=== PATIENT | male | born 1950 | race Caucasian/White ===

== ENCOUNTER 2021-01-09 06:12 | Day surgery (SDC) | payer MEDICARE ==
[2021-01-08 11:14] LABS: BASOPHILS # (AUTO) 0.1 X10'3 (0-0.2); BASOPHILS % (AUTO) 1.3 % (0-1); EOSINOPHILS # (AUTO) 0.2 X10'3 (0-0.9); EOSINOPHILS % (AUTO) 4.5 % (0-6); HEMATOCRIT 43.8 % (42.0-52.0); HEMOGLOBIN 14.9 g/dl (14.0-17.9); LYMPHOCYTES # (AUTO) 1.6 X10'3 (1.1-4.8); LYMPHOCYTES % (AUTO) 31.7 % (21-51); MEAN CORPUSCULAR HGB CONC 33.9 g/dL (33.0-36.5); MEAN CORPUSCULAR VOLUME 100.3 FL (78-98); MEAN PLATELET VOLUME 9.8 FL (7.4-10.4); MONOCYTES # (AUTO) 0.4 X10'3 (0-0.9); MONOCYTES % (AUTO) 7.6 % (2-12); NEUTROPHILS # (AUTO) 2.7 X10'3 (1.8-7.7); NEUTROPHILS % (AUTO) 54.9 % (42-75); PLATELET COUNT 174 X10'3 (140-440); RED BLOOD COUNT 4.37 X10'6 (4.70-6.10); RED CELL DISTRIBUTION WIDTH 13.4 % (11.5-14.5); WHITE BLOOD COUNT 4.9 X10'3 (4.5-11.0)
[2021-01-08 11:19] LABS: ALBUMIN 3.6 G/DL (3.4-5.0); ANION GAP 6 (8-16); BLOOD UREA NITROGEN 17 MG/DL (7-18); BUN/CREATININE RATIO 19.8 (5.4-32.0); CALCIUM 8.8 MG/DL (8.5-10.1); CHLORIDE 106 MMOL/L (99-107); CREATININE 0.86 MG/DL (0.60-1.10); GLUCOSE 97 MG/DL (70-104); POTASSIUM 4.3 MMOL/L (3.5-5.1); SODIUM 141 MMOL/L (135-145); TOTAL CARBON DIOXIDE 29.1 MMOL/L (24-32); eGFR 88 ML/MIN
[2021-01-08 11:21] LABS: PARTIAL THROMBOPLASTIN TIME 25 SECONDS (22-32)
[~2021-01-09] VITALS: Ht 188 cm; Wt 88.1 kg
[2021-01-09] VITALS (12 sets, daily range): BP systolic 94–115; BP diastolic 60–81
[2021-01-09] MEDS ORDERED: diphenhydrAMINE 25mg capsule PO PRN (06:25)
[2021-01-09] MEDS ORDERED: normal saline 1,000 ML IV SCH (06:25)
[2021-01-09] MEDS ORDERED: LORazepam 0.5 MG tablet PO PRN (06:25)
[2021-01-09] MEDS ORDERED: Vitamin B12 PO (06:45)
[2021-01-09] MEDS ORDERED: vitamin D PO (06:45)
[2021-01-09] MEDS ORDERED: FOLI0.4T6 PO (06:45)
[2021-01-09] MEDS ORDERED: LOPE2CAP PO (06:45)
[2021-01-09] MEDS ORDERED: ATOR10TA87 PO (06:45)
[2021-01-09] MEDS ORDERED: fentaNYL/PF 50MCG/1 ML 2ML syringe ONE (07:24)
[2021-01-09] MEDS ORDERED: nitroGLYCERIN-Tridil 50MG/D5W 250 ML IV ONE (07:24)
[2021-01-09] MEDS ORDERED: heparin 1,000unit/ml 10ml vial 10 ML ONE (07:24)
[2021-01-09] MEDS ORDERED: verapamil 2.5 mg/ml inj IV ONE (07:24)
[2021-01-09] MEDS ORDERED: midazolam 1 mg/ML 2ml injection ONE (07:24)
[2021-01-09] MEDS ORDERED: iohexol 350MG/ML 100ml bottle IV ONE ×2 (07:24→07:27)
[2021-01-09] MEDS ORDERED: LIDOcaine 1% (10mg/ml)w/preservative injection 20ml MDV ONE (07:24)
--- NOTE | 2021-01-09 08:00 | NUR ---
Patient to clinical lab clerk at this time.
[2021-01-09] MEDS ORDERED: normal saline 1,000 ML IV ONE (09:10)
== END 2021-01-09 14:00 | disposition home or self-care (01) ==
LOC: SSTAY O 06:12
PROVIDERS: ATTEND Internal Medicine Cardiovascular Disease
DX: R07.9 Chest pain, unspecified (principal); R06.02 Shortness of breath; I25.10 Atherosclerotic heart disease of native coronary artery without angina pectoris; E78.5 Hyperlipidemia, unspecified; Z72.89 Other problems related to lifestyle; Z79.899 Other long term (current) drug therapy; Z82.49 Family history of ischemic heart disease and other diseases of the circulatory system
CPT/HCPCS: 36415; 76937; 80048; 85025; 85610; 85730; 93005; 93458; 99152; C1769; C1894; J1644; J2001; J2250; J3010; J7030; Q0163; Q9967; 99153; A4620; A5120; A6258; J3490

== ENCOUNTER 2022-06-15 06:14 | Day surgery (SDC) | payer MEDICARE ==
[2022-06-14 09:51] LABS: BASOPHILS # (AUTO) 0.1 X10'3 (0-0.2); BASOPHILS % (AUTO) 1.3 % (0-1); EOSINOPHILS # (AUTO) 0.3 X10'3 (0-0.9); EOSINOPHILS % (AUTO) 5.4 % (0-6); HEMATOCRIT 43.2 % (42.0-52.0); HEMOGLOBIN 14.6 g/dl (14.0-17.9); LYMPHOCYTES # (AUTO) 1.3 X10'3 (1.1-4.8); LYMPHOCYTES % (AUTO) 27.3 % (21-51); MEAN CORPUSCULAR HEMOGLOBIN 32.5 PG (27.0-31.0); MEAN CORPUSCULAR HGB CONC 33.7 g/dL (33.0-36.5); MEAN CORPUSCULAR VOLUME 96.6 FL (78-98); MEAN PLATELET VOLUME 9.5 FL (7.4-10.4); MONOCYTES # (AUTO) 0.4 X10'3 (0-0.9); NEUTROPHILS # (AUTO) 2.7 X10'3 (1.8-7.7); PLATELET COUNT 161 X10'3 (140-440); RED BLOOD COUNT 4.48 X10'6 (4.70-6.10); RED CELL DISTRIBUTION WIDTH 13.3 % (11.5-14.5); WHITE BLOOD COUNT 4.7 X10'3 (4.5-11.0)
[2022-06-14 10:05] LABS: APTT 25 SECONDS (22-32)
[2022-06-14 10:48] LABS: ALBUMIN 3.4 G/DL (3.4-5.0); ANION GAP 9 (8-16); BLOOD UREA NITROGEN 16 MG/DL (7-18); CALCIUM 8.2 MG/DL (8.5-10.1); CHLORIDE 107 MMOL/L (99-107); CREATININE 0.89 MG/DL (0.60-1.10); GLUCOSE 110 MG/DL (70-104); POTASSIUM 3.8 MMOL/L (3.5-5.1); SODIUM 141 MMOL/L (135-145); TOTAL CARBON DIOXIDE 25.1 MMOL/L (24-32); eGFR 85 ML/MIN
[2022-06-15] VITALS (10 sets, daily range): BP systolic 95–129; BP diastolic 55–78
[~2022-06-15] VITALS: Ht 188 cm; Wt 84.8 kg
[~2022-06-15 06:14] MED LIST: ATOR10TA87 PO; FOLI0.4T6 PO; LOPE2CAP PO; Vitamin B12 PO; vitamin D PO
[2022-06-15] MEDS ORDERED: LIDOcaine/PRILOcaine 5gm cream TP ONE (06:30)
[2022-06-15] MEDS ORDERED: normal saline 1,000 ML IV SCH (06:30)
[2022-06-15] MEDS ORDERED: diphenhydrAMINE 25mg capsule PO PRN (06:30)
[2022-06-15] MEDS ORDERED: LORazepam 0.5 MG tablet PO PRN (06:30)
[2022-06-15] MEDS ORDERED: MAGN100T5 PO (07:02)
[2022-06-15] MEDS ORDERED: CHOL500044 PO (07:02)
[2022-06-15] MEDS ORDERED: OMEG1CAP2 PO (07:02)
[2022-06-15] MEDS ORDERED: SIME180C70 PO (07:02)
[2022-06-15] MEDS ORDERED: ASPI-1265 PO (07:02)
[2022-06-15] MEDS ORDERED: verapamil 2.5 mg/ml inj IV ONE (07:30)
[2022-06-15] MEDS ORDERED: midazolam 1 mg/ML 2ml injection ONE (07:31)
[2022-06-15] MEDS ORDERED: heparin 1,000unit/ml 10ml vial 10 ML ONE (07:31)
[2022-06-15] MEDS ORDERED: nitroGLYCERIN-Tridil 50MG/D5W 250 ML IV ONE (07:31)
[2022-06-15] MEDS ORDERED: LIDOcaine 1%/PF 5ML 10 MG/ML VIAL ONE (07:31)
[2022-06-15] MEDS ORDERED: iohexol 350MG/ML 100ml bottle IV ONE (07:31)
[2022-06-15] MEDS ORDERED: fentaNYL/PF 50MCG/1 ML 2ML syringe ONE (07:31)
[2022-06-15] MEDS ORDERED: normal saline 1000ml 1,000 ML IV SCH (09:05)
--- NOTE | 2022-06-15 11:05 | NUR ---
Pt had fluids infusing as ordered upon arrival from lift slab operator.
== END 2022-06-15 13:55 | disposition home or self-care (01) ==
LOC: SSTAY O 06:14
PROVIDERS: ATTEND Internal Medicine Cardiovascular Disease
DX: I25.10 Atherosclerotic heart disease of native coronary artery without angina pectoris (principal); I48.0 Paroxysmal atrial fibrillation; E78.5 Hyperlipidemia, unspecified; Z82.49 Family history of ischemic heart disease and other diseases of the circulatory system; Z85.038 Personal history of other malignant neoplasm of large intestine; Z98.890 Other specified postprocedural states; Z79.899 Other long term (current) drug therapy; G47.30 Sleep apnea, unspecified
CPT/HCPCS: 36415; 76937; 80048; 85025; 85610; 85730; 93005; 93458; 99152; 99153; C1769; C1894; J1644; J2250; J3010; J3490; J7030; Q0163; Q9967; A4620; A5120; A6258

== ENCOUNTER 2024-11-02 10:22 | Day surgery (SDC) | payer MEDICARE ==
[2024-11-02] VITALS (9 sets, daily range): BP systolic 100–141; BP diastolic 58–89; PULSE 55–75; RESP 10–20; TEMP 97.8; O2SAT 94–98
[~2024-11-02] VITALS: Ht 188 cm; Wt 86.2 kg
[~2024-11-02 10:22] MED LIST changes: +ASPI-1265 PO; +CHOL500044 PO; -FOLI0.4T6 PO; +MAGN100T5 PO; +OMEG1CAP2 PO; +SIME180C61 PO; -Vitamin B12 PO; -vitamin D PO
[2024-11-02] MEDS ORDERED: FLEC100T2 PO (11:16)
[2024-11-02] MEDS ORDERED: CARV3.122 PO (11:16)
[2024-11-02] MEDS ORDERED: CYAN-116 (11:16)
[2024-11-02] MEDS ORDERED: APIX5TAB3 PO (11:16)
[2024-11-02] MEDS ORDERED: LORazepam 0.5 MG tablet PO ONE (11:30)
[2024-11-02] MEDS ORDERED: amiodarone 150mg/dext, iso-os 100 ML IV ONE (11:30)
[2024-11-02] MEDS ORDERED: atropine 0.1mg/ml 10ml syringe IV ONE (11:30)
[2024-11-02] MEDS ORDERED: diphenhydrAMINE 25mg capsule PO ONE (11:30)
[2024-11-02] MEDS ORDERED: normal saline 1000ml 1,000 ML IV SCH (11:30)
[2024-11-02 11:37] LABS: INR 1.1 INR; PROTHROMBIN TIME 11.3 SECONDS (9.0-12.0)
[2024-11-02 11:42] LABS: ALBUMIN 3.5 G/DL (3.4-5.0); ANION GAP 7 (8-16); BLOOD UREA NITROGEN 16 MG/DL (7-18); BUN/CREATININE RATIO 18.4 (10.0-20.0); CALCIUM 8.3 MG/DL (8.5-10.1); CHLORIDE 107 MMOL/L (99-107); CREATININE 0.87 MG/DL (0.60-1.10); GLUCOSE 98 MG/DL (70-104); POTASSIUM 3.8 MMOL/L (3.5-5.1); SODIUM 141 MMOL/L (135-145); TOTAL CARBON DIOXIDE 27.2 MMOL/L (24-32); eCRCL 91 ML/MIN; eGFR 87 ML/MIN
[2024-11-02 12:26] LABS: BASOPHILS # (AUTO) 0.1 X10'3 (0-0.2); BASOPHILS % (AUTO) 0.9 % (0-1); EOSINOPHILS # (AUTO) 0.2 X10'3 (0-0.9); EOSINOPHILS % (AUTO) 2.8 % (0-6); HEMATOCRIT 43.4 % (42.0-52.0); HEMOGLOBIN 14.7 g/dl (14.0-17.9); LYMPHOCYTES # (AUTO) 1.4 X10'3 (1.1-4.8); LYMPHOCYTES % (AUTO) 21.2 % (21-51); MEAN CORPUSCULAR HEMOGLOBIN 33.2 PG (27.0-31.0); MEAN CORPUSCULAR HGB CONC 33.8 g/dL (33.0-36.5); MEAN CORPUSCULAR VOLUME 98.3 FL (78-98); MEAN PLATELET VOLUME 9.6 FL (7.4-10.4); MONOCYTES # (AUTO) 0.5 X10'3 (0-0.9); MONOCYTES % (AUTO) 7.8 % (2-12); NEUTROPHILS # (AUTO) 4.6 X10'3 (1.8-7.7); NEUTROPHILS % (AUTO) 67.3 % (42-75); PLATELET COUNT 186 X10'3 (140-440); RED BLOOD COUNT 4.42 X10'6 (4.70-6.10); RED CELL DISTRIBUTION WIDTH 13.7 % (11.5-14.5); WHITE BLOOD COUNT 6.8 X10'3 (4.5-11.0)
[2024-11-02] MEDS: MIDAZolam 1mg/ml 10ml vial IV ONE (13:17)
[2024-11-02] MEDS: morphine 10mg/ml inj. IV ONE (13:17)
== END 2024-11-02 14:20 | disposition home or self-care (01) ==
LOC: SSTAY O 10:22
PROVIDERS: ATTEND Internal Medicine Cardiovascular Disease
DX: I48.0 Paroxysmal atrial fibrillation (principal); I25.10 Atherosclerotic heart disease of native coronary artery without angina pectoris; E78.5 Hyperlipidemia, unspecified; I49.5 Sick sinus syndrome; I48.92 Unspecified atrial flutter; R00.8 Other abnormalities of heart beat; Z80.0 Family history of malignant neoplasm of digestive organs; Z82.49 Family history of ischemic heart disease and other diseases of the circulatory system; Z79.899 Other long term (current) drug therapy; Z98.890 Other specified postprocedural states
CPT/HCPCS: 80048; 85025; 85610; 92960; 93005; J2250; J2270; J7030; Z7610; J2274

== ENCOUNTER 2024-11-23 11:06 | Day surgery (SDC) | payer MEDICARE ==
[2024-11-23] VITALS (11 sets, daily range): BP systolic 92–121; BP diastolic 60–78; PULSE 55–68; RESP 10–18; TEMP 97.5; O2SAT 96–99
[~2024-11-23] VITALS: Ht 188 cm; Wt 88.2 kg
[~2024-11-23 11:06] MED LIST changes: +APIX5TAB3 PO; -ASPI-1265 PO; +CARV3.122 PO; +CYAN-116; +FLEC100T2 PO; -LOPE2CAP PO; -SIME180C61 PO
[2024-11-23] MEDS ORDERED: diphenhydrAMINE 25mg capsule PO ONE (11:25)
[2024-11-23] MEDS ORDERED: amiodarone 150mg/dext, iso-os 100 ML IV ONE (11:25)
[2024-11-23] MEDS ORDERED: LORazepam 0.5 MG tablet PO ONE (11:25)
[2024-11-23] MEDS ORDERED: atropine 0.1mg/ml 10ml syringe IV ONE (11:25)
[2024-11-23 11:49] LABS: BASOPHILS # (AUTO) 0.1 X10'3 (0-0.2); BASOPHILS % (AUTO) 1.1 % (0-1); EOSINOPHILS # (AUTO) 0.3 X10'3 (0-0.9); EOSINOPHILS % (AUTO) 3.2 % (0-6); HEMATOCRIT 42.2 % (42.0-52.0); HEMOGLOBIN 14.3 g/dl (14.0-17.9); LYMPHOCYTES # (AUTO) 1.6 X10'3 (1.1-4.8); MEAN CORPUSCULAR HEMOGLOBIN 33.6 PG (27.0-31.0); MEAN CORPUSCULAR VOLUME 98.9 FL (78-98); MEAN PLATELET VOLUME 8.6 FL (7.4-10.4); MONOCYTES # (AUTO) 0.6 X10'3 (0-0.9); MONOCYTES % (AUTO) 7.4 % (2-12); NEUTROPHILS # (AUTO) 5.3 X10'3 (1.8-7.7); NEUTROPHILS % (AUTO) 68.3 % (42-75); PLATELET COUNT 217 X10'3 (140-440); RED BLOOD COUNT 4.27 X10'6 (4.70-6.10); RED CELL DISTRIBUTION WIDTH 13.5 % (11.5-14.5); WHITE BLOOD COUNT 7.8 X10'3 (4.5-11.0)
[2024-11-23 12:00] LABS: INR 1.1 INR; PROTHROMBIN TIME 11.5 SECONDS (9.0-12.0)
[2024-11-23 12:04] LABS: ALBUMIN 3.4 G/DL (3.4-5.0); ANION GAP 9 (8-16); BLOOD UREA NITROGEN 15 MG/DL (7-18); BUN/CREATININE RATIO 22.1 (10.0-20.0); CALCIUM 8.6 MG/DL (8.5-10.1); CHLORIDE 106 MMOL/L (99-107); CREATININE 0.68 MG/DL (0.60-1.10); GLUCOSE 97 MG/DL (70-104); SODIUM 141 MMOL/L (135-145); TOTAL CARBON DIOXIDE 25.7 MMOL/L (24-32); eCRCL 116 ML/MIN; eGFR > 90 ML/MIN
[2024-11-23] MEDS: morphine 10mg/ml inj. IV ONE (14:07)
[2024-11-23] MEDS: MIDAZolam 1mg/ml 10ml vial IV ONE (14:07)
[2024-11-23] MEDS: normal saline 1000ml 1,000 ML IV SCH (14:07)
== END 2024-11-23 14:15 | disposition home or self-care (01) ==
LOC: SSTAY O 11:06
PROVIDERS: ATTEND Internal Medicine Cardiovascular Disease
DX: I48.0 Paroxysmal atrial fibrillation (principal); I48.92 Unspecified atrial flutter; E78.5 Hyperlipidemia, unspecified; I25.10 Atherosclerotic heart disease of native coronary artery without angina pectoris; I44.30 Unspecified atrioventricular block; Z98.890 Other specified postprocedural states; Z82.49 Family history of ischemic heart disease and other diseases of the circulatory system; Z79.899 Other long term (current) drug therapy
CPT/HCPCS: 36415; 80048; 85025; 85610; 92960; 93005; J2250; J2270; J7030; J2274